=== PATIENT | male | born 1990 | race Two or more races ===

== ENCOUNTER 2019-01-13 20:49 | Emergency (ER) | payer BC ==
[~2019-01-13] VITALS: Ht 177.8 cm; Wt 86.2 kg
[2019-01-13 21:07] VITALS: BP 112/73
== END 2019-01-14 02:00 | disposition left against medical advice (07) ==
LOC: ER 20:51
DX: M25.531 Pain in right wrist (principal); Z53.21 Procedure and treatment not carried out due to patient leaving prior to being seen by health care provider
CPT/HCPCS: 73110